=== PATIENT | male | born 1985 | race Caucasian/White ===

== ENCOUNTER 2022-08-03 08:45 | Emergency (ER) | payer MEDICAID, SELFPAY ==
[2022-08-03 09:04] VITALS: BP 150/82; PULSE 73; RESP 16; TEMP 36.5; O2SAT 99; BMI 23.6
--- NOTE | 2022-08-03 10:00 | ED_ITS ---
HPI - Dental/Oral General: Chief complaint: Dental/Oral Stated complaint: Jaw pain Time Seen by Provider: 08/03/22 08:49 Source: patient Mode of arrival: ambulatory History of Present Illness: 37-year-old male presents emergency room with complaint of right mandibular pain for the last week he has significant dental caries and erosion. He is complaining of pain posterior left mandible with pain radiating up into his ear no fever sweats chills nausea vomiting or diarrhea has not been taking anything for it up to this point. MD Complaint: tooth pain Teeth map: 1. Onset (ago): week(s) (1) Duration: constant Severity: moderate Relieving factors: nothing Exacerbating factors: nothing Context: history of dental caries Associated symptoms: Reports ear or mastoid pain and sore throat; Denies fever(s), gum swelling, odynophagia or tongue swelling Review of Systems Const: Denies: fever(s) ENMT: Reports: ear or mastoid pain; Denies: odynophagia Card: Denies: chest pain, edema, dyspnea on exertion or orthopnea Resp: Denies: dyspnea, productive cough or non-productive cough GI: Denies: abdominal pain, nausea, vomiting, hematemesis, coffee ground emesis, diarrhea, constipation, bloating, hematochezia or melena : Denies: flank pain, dysuria, urinary frequency or urinary urgency Skin/Breast: Denies: rash or pruritus All/Imm: Denies: tongue swelling Physical Exam Const: COMMON NORMALS: no acute distress GENERAL APPEARANCE: cooperative and comfortable ORIENTATION/CONSCIOUSNESS: Yes awake, Yes oriented to person, Yes oriented to place and Yes oriented to time HENMT: COMMON NORMALS: normocephalic, atraumatic, hearing grossly normal bilaterally, external ears normal, EAC's normal, TM's normal bilaterally, Normal nasal mucous membranes and turbinates present, moist oral mucous membranes and oropharynx normal HEAD & SCALP: normocephalic and atraumatic NOSE: Normal nasal mucous membranes and turbinates present EXTERNAL EAR: Yes external ears normal EXTERNAL AUDITORY CANAL: EAC's normal TYMPANIC MEMBRANE: TM's normal bilaterally TEETH & GINGIVA: Yes caries and Yes poor dentition Eye: COMMON NORMALS: Equal, round and reactive pupils present, EOMs intact bilaterally, conjunctivae normal and no scleral icterus CONJUNCTIVA: Yes conjunctivae normal PUPIL: Yes Equal, round and reactive pupils present Neck/C-Spine: COMMON NORMALS: full ROM, no lymphadenopathy, supple and no JVD Lymph: LYMPHATIC: no lymphadenopathy noted and no lymphedema noted Resp: COMMON NORMALS: normal respiratory effort, No retractions, No use of accessory muscles and clear to auscultation bilaterally AUSCULTATION: clear to auscultation bilaterally Cardio: COMMON NORMALS: no JVD, regular rate, regular rhythm and No murmurs present (Cardio) RATE: regular rate RHYTHM: regular rhythm GI: COMMON NORMALS: Soft to palpation and No hepatosplenomegaly present AUSCULTATION: Yes normoactive bowel sounds PALPATION: Yes Soft to palpation, No Tenderness to palpation present (GI), No Guarding due to palpation present (GI) and Yes No hepatosplenomegaly present Extremity: COMMON NORMALS: normal to inspection, capillary refill normal, no clubbing, cyanosis or edema, no calf tenderness and no pedal edema Neuro: SENSORIUM/ORIENTATION: Yes oriented to person, Yes oriented to place and Yes oriented to time Skin: COMMON NORMALS: no rashes or lesions noted GENERAL SKIN EXAM: no rashes or lesions noted Course Vital Signs: Vital signs: Vital Signs Temperature 97.7 F 08/03/22 09:04 Pulse Rate 73 08/03/22 09:04 Respiratory Rate 16 08/03/22 09:04 Blood Pressure 150/82 08/03/22 09:04 Pulse Oximetry 99 08/03/22 09:04 MDM - Dental/Oral Medical Decision Making No lymphadenopathy and no significant gingival swelling or drainage at this time. TM was clear and except ear pain is referred from the tooth pain. We gavi l start him on Augmentin and diclofenac as needed for discomfort and follow-up with dentistry as soon as he is able for definitive care. Discharge Plan Discharge Patient Disposition: Home Clinical Impression: Dental caries Condition: Stable Prescriptions: New amoxicillin-pot clavulanate 875-125 mg tablet 1 tab PO BID Qty: 20 0RF diclofenac sodium 75 mg tablet,delayed release (DR/EC) 75 mg PO Q12H PRN (Reason: pain) Qty: 20 0RF No Action Tylenol 325 mg Capsule 650 mg PO QID PRN (Reason: Pain) Discharge Orders: Discharge ED (Routine); Ordered 08/03/22 Ordered By: Onesimo L Horstman Discharge Diet: Soft Mechanical Discharge Activity: Resume usual activity Patient Instructions: Opioid Safety, Pain Management Activity Restrictions/Additional Instructions: Recommend following up with a dentist as soon as you are able for definitive care of the dental caries. Coding Level of Care Code ED Loading Inspector for Jolene Tony
== END 2022-08-03 09:56 | disposition home or self-care (01) ==
PROVIDERS: Emergency Provider Family Medicine
DX: K02.9 Dental caries, unspecified (principal)
CPT/HCPCS: 99283

== ENCOUNTER 2023-03-25 10:13 | Emergency (ER) | payer MEDICAID, SELFPAY ==
[2023-03-25 10:17] VITALS: BP 133/91; PULSE 78; RESP 14; TEMP 36.7; O2SAT 98; BMI 23.6
--- NOTE | 2023-03-25 10:28 | ECG_ITS ---
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 Measurements Intervals [place] Rate: 71 P: 46 GA: 172 QRS: 50 QRSD: 86 T: 55 QT: 368 QTc: 402 Interpretive Statements SINUS RHYTHM SEPTAL MYOCARDIAL INFARCTION , OF INDETERMINATE AGE [40+ ms Q WAVE IN V1/V2] No previous ECG available for comparison Electronically Signed On 03-25-2023 15:45:23 CDT by Ciro Richter M.D. [email or web address] [email or web address] clinic foundationEnsocare/store/NU/[id number] f
--- NOTE | 2023-03-25 10:34 | XRR_ITS ---
PROCEDURE INFORMATION: Exam: XR Chest Exam date and time: 03/25/2023 11:12 AM Age: 37 years old Clinical indication: Pain; Chest pressure; Additional info: Cp, retrosternal TECHNIQUE: Imaging protocol: Radiologic exam of the chest. Views: 1 view. COMPARISON: No relevant prior studies available. FINDINGS: Lungs: Unremarkable. No consolidation. Pleural spaces: Unremarkable. No pleural effusion. No pneumothorax. Heart/Mediastinum: Unremarkable. No cardiomegaly. Bones/joints: Unremarkable for age. XR/XR chest 1V [id number] IMPRESSION: Negative chest exam.
--- NOTE | 2023-03-25 10:59 | ED_ITS ---
HPI - Chest Pain General: Chief Complaint: Chest Pain Stated Complaint: Chest tightness Time Seen by Provider: 03/25/23 10:59 History of Present Illness: Mr. Martel is a 37-year-old gentleman with history of tobaccoism presenting the emergency department for chest discomfort that has largely resolved. He notes onset of symptoms this morning during rest without known specific provoking event. Severe substernal squeezing associated with mild shortness of breath. Currently pain has become mild. Has had 2 episodes similar in the past though denies specific similar events and this has been more severe than previous episodes. No other specific changes in health, exacerbating, or alleviating factors identified. Onset (ago): hour(s) Prior episodes: Yes (2 other times) Onset: during rest Pain location: substernal Severity: severe Quality: tightness Relieving factors: nothing Exacerbating factors: nothing Associated symptoms: Reports dyspnea Review of Systems General: Reports: 10 or more systems reviewed and unremarkable except in HPI and below Resp: Reports: dyspnea [facility] ED PFSH: Medical History (Updated 04/02/23 @ 00:01 by DAPHNE Vaughan) No significant past medical history Surgical History (Updated 03/25/23 @ 11:05 by Piyush Burgos MD) No significant past surgical history Social History (Updated 03/25/23 @ 11:06 by Piyush Burgos MD) Smoking and tobacco status: current every day smoker Physical Exam Const: COMMON NORMALS: alert GENERAL APPEARANCE: cooperative and well developed HENMT: COMMON NORMALS: normocephalic and atraumatic HEAD & SCALP: normocephalic and atraumatic Eye: COMMON NORMALS: conjunctivae normal CONJUNCTIVA: Yes conjunctivae normal SCLERA: sclerae normal Neck/C-Spine: COMMON NORMALS: supple GENERAL: Yes trachea midline Resp: COMMON NORMALS: normal respiratory effort EFFORT & INSPECTION: Yes able to speak in complete sentences Cardio: COMMON NORMALS: regular rate and regular rhythm RATE: regular rate RHYTHM: regular rhythm GI: COMMON NORMALS: Soft to palpation PALPATION: Yes Soft to palpation and No Tenderness to palpation present (GI) Extremity: GENERAL: Yes normal exam except as noted and No edema Neuro: COMMON NORMALS: moves all extremities SENSORIUM/ORIENTATION: Yes alert and No Orientation impaired Psych: COMMON NORMALS: mental status grossly normal and Normal thought process present THOUGHT PROCESS: Normal thought process present Course Vital Signs: Vital signs: Vital Signs Temperature 98.1 F 03/25/23 10:17 Pulse Rate 62 03/25/23 14:05 Respiratory Rate 22 H 03/25/23 14:05 Blood Pressure 130/81 03/25/23 14:05 Pulse Oximetry 94 03/25/23 14:05 Oxygen Delivery Me thod Room Air 03/25/23 11:01 MDM - Chest Pain Medical Decision Making 37-year-old presenting with chest pain. Nontoxic. EKG with sinus rhythm, normal axis and intervals, no STEMI. Unremarkable hematologic panel. Metabolic panel with mildly elevated bilirubin and minimal transaminitis. D-dimer negative. Troponin negative. No UTI. Chest x-ray with no lobar consolidations or pneumothorax. Given abnormal biliary testing and possibility of referred pain ultrasound was obtained and notes cholelithiasis. Patient does not have right upper quadrant reproducible tenderness palpation and denies typical biliary colic and history. I do not believe that he requires inpatient management for further evaluation. Bile ducts are normal. Patient is low risk by heart score. The results of ED evaluation were discussed with the patient including prescriptions and/or symptomatic cares (if applicable) including appropriate and responsible use, followup plan, and return precautions. The patient verbalized understanding and felt safe for discharge. Medical Records I reviewed the patient's medical records. Lab Data I reviewed the patient's lab results. 03/25/23 10:50 03/25/23 10:50 Radiology Impressions Chest X-Ray 03/25/23 10:34 IMPRESSION: Negative chest exam. Gallbladder Ultrasound 03/25/23 12:08 IMPRESSION: Contracted gallbladder with stones. Suboptimal evaluation for gallbladder wall thickening. If clinically indicated, HIDA scan would provide a more sensitive evaluation for acute gallbladder pathology. Laboratory Results WBC 7.1 10^3/uL (4.0-10.0) 03/25/23 10:50 RBC 5.33 10^6/uL (4.1-5.3) H 03/25/23 10:50 Hgb 16.4 g/dL (11.7-16.6) 03/25/23 10:50 Hct 46.9 % (42.0-52.0) 03/25/23 10:50 MCV 88.0 fl (80-94) 03/25/23 10:50 MCH 30.8 pg (28.0-34.0) 03/25/23 10:50 MCHC 35.0 g/dL (30.0-36.0) 03/25/23 10:50 RDW 12.8 % (12.1-15.1) 03/25/23 10:50 Plt Count 222 10^3/cmm (130-400) 03/25/23 10:50 MPV 8.9 fL (7.4-10.4) 03/25/23 10:50 Neut % (Auto) 50.4 % 03/25/23 10:50 Lymph % (Auto) 36.4 % 03/25/23 10:50 [place] % (Auto) 7.7 % 03/25/23 10:50 Eos % (Auto) 4.6 % 03/25/23 10:50 Baso % (Auto) 0.8 % 03/25/23 10:50 Neut # (Auto) 3.58 10^3/uL (1.8-7.7) 03/25/23 10:50 Lymph # (Auto) 2.6 10^3/uL (0.8-4.8) 03/25/23 10:50 [place] # (Auto) 0.6 10^3/uL (0.2-0.9) 03/25/23 10:50 Eos # (Auto) 0.3 10^3/uL (0.0-0.8) 03/25/23 10:50 Baso # (Auto) 0.1 10^3/uL (0.0-0.1) 03/25/23 10:50 Nucleated RBC % (auto) 0 % 03/25/23 10:50 Nucleated RBCs # 0.0 /100WBC 03/25/23 10:50 D-Dimer 0.38 ug/mIFEU (0-0.59) 03/25/23 10:50 Sodium 138 mmol/L (136-145) 03/25/23 10:50 Potassium 4.4 mmol/L (3.5-5.1) 03/25/23 10:50 Chloride 99 mmol/L (98-107) 03/25/23 10:50 Carbon Dioxide 28 mmol/L (22-29) 03/25/23 10:50 Anion Gap 15.4 (5-19) 03/25/23 10:50 BUN 14 mg/dL (6-20) 03/25/23 10:50 Creatinine 0.8 mg/dL (0.7-1.2) 03/25/23 10:50 GFR Calculation 110.0 mL/min (90-130) 03/25/23 10:50 Glucose 78 mg/dL (65-115) 03/25/23 10:50 Calculated Osmolality 285 mOsm/kg (285-295) 03/25/23 10:50 Calcium 10.1 mg/dL (8.5-10.5) 03/25/23 10:50 Total Bilirubin 1.6 mg/dL (0.15-1.2) H 03/25/23 10:50 AST 86 U/L (0-40) H 03/25/23 10:50 ALT 96 U/L (0-41) H 03/25/23 10:50 Alkaline Phosphatase 75 U/L (40-130) 03/25/23 10:50 Troponin T Baseline 6 ng/L (0-15) 03/25/23 10:50 Troponin T 120 Minute 6.28 ng/L (0-15) 03/25/23 12:47 Delta Troponin T 0.22 ABS# (0-10) 03/25/23 12:47 Total Protein 7.7 g/dL (6.6-8.7) 03/25/23 10:50 Albumin 5.1 g/dL (3.5-5.2) 03/25/23 10:50 Globulin 2.6 g/dL (1.3-4.6) 03/25/23 10:50 Lipase 13 U/L (13-60) 03/25/23 12:47 TSH 2.67 uIU/mL (0.27-4.20) 03/25/23 10:50 Urine Color Dark yellow (Yellow) 03/25/23 13:23 Urine Appearance Clear (CLEAR) 03/25/23 13:23 Urine pH 7 (5-7) 03/25/23 13:23 Ur Specific [place] 1.015 (1.005-1.030) 03/25/23 13:23 Urine Protein Neg (Negative) 03/25/23 13:23 Urine Glucose (UA) Norm (Normal) 03/25/23 13:23 Urine Ketones 1+ (Negative) H 03/25/23 13:23 Urine Blood Neg (Negative) 03/25/23 13:23 Urine Nitrate Negative (Negative) 03/25/23 13:23 Urine Bilirubin 1+ (Negative) H 03/25/23 13:23 Urine Urobilinogen 4 mg/dL (Negative) H 03/25/23 13:23 Ur Leukocyte Esterase Negative (Negative) 03/25/23 13:23 Urine Opiates Screen Negative ng/mL (Negative) 03/25/23 13:23 Ur Barbiturates Screen Negative ng/mL (Negative) 03/25/23 13:23 Ur Phencyclidine Scrn Negative ng/mL (Negative) 03/25/23 13:23 Ur Amphetamines Screen Positive ng/mL (Negative) H 03/25/23 13:23 U Benzodiazepines Scrn Negative ng/mL (Negative) 03/25/23 13:23 Urine Cocaine Screen Negative ng/mL (Negative) 03/25/23 13:23 U Marijuana (THC) Screen Positive ng/mL (Negative) H 03/25/23 13:23 Discharge Plan Discharge Patient Disposition: Home Clinical Impression: Chest pain, Abnormal transaminases, Abnormal bilirubin test Condition: Stable Prescriptions: No Action No Known Home Medications Discharge Orders: Discharge ED (Routine); Ordered 03/25/23 Ordered By: Piyush Burgos Discharge Diet: Usual diet Discharge Activity: Resume usual activity Patient Instructions: Chest Pain (ED), Gallstones (ED) Activity Restrictions/Additional Instructions: Thank you for visiting the emergency department. You were seen and evaluated for chest pain. The exact cause of your symptoms is unclear however does not appear to need hospitalization at this time as you are low risk for adverse cardiac events. You were noted to have abnormal liver enzymes and total bilirubin. The exact cause of this is unclear and requires further outpatient management. I will message case management for outpatient testing and follow-up with a primary care provider. Return to the emergency department for uncontrolled symptoms, yellowing of the eyes or skin, right upper quadrant abdominal pain, fevers, or anything else that you are concerned about and feel needs emergency department evaluation. Coding Level of Care Code ED Mechanical Oxidizer for Jolene Tony
[2023-03-25 11:01] VITALS: BP 135/89; PULSE 75; RESP 20; O2SAT 100
[2023-03-25 11:06] LABS: Basophils # 0.1 10^3/uL (0.0-0.1); Basophils % 0.8 %; Eosinophils # 0.3 10^3/uL (0.0-0.8); Eosinophils % 4.6 %; Hematocrit 46.9 % (42.0-52.0); Hemoglobin 16.4 g/dL (11.7-16.6); Lymphocytes # 2.6 10^3/uL (0.8-4.8); Lymphocytes % 36.4 %; Mean Corpuscular Hemoglobin 30.8 pg (28.0-34.0); Mean Platelet Volume 8.9 fL (7.4-10.4); Monocytes # 0.6 10^3/uL (0.2-0.9); Monocytes % 7.7 %; Neutrophils # 3.58 10^3/uL (1.8-7.7); Neutrophils % 50.4 %; Nucleated Red Blood Cells % 0 %; Platelet Count 222 10^3/cmm (130-400); Red Blood Count 5.33 10^6/uL (4.1-5.3); Red Cell Distribution Width 12.8 % (12.1-15.1); White Blood Count 7.1 10^3/uL (4.0-10.0)
[2023-03-25 11:27] LABS: Troponin(5th) Baseline 6 ng/L (0-15)
[2023-03-25 11:35] LABS: D Dimer 0.38 ug/mIFEU (0-0.59)
[2023-03-25 11:36] LABS: Alanine Aminotransferase 96 U/L (0-41); Albumin Level 5.1 g/dL (3.5-5.2); Alkaline Phosphatase 75 U/L (40-130); Anion Gap 15.4 (5-19); Aspartate Amino Transferase 86 U/L (0-40); Blood Urea Nitrogen 14 mg/dL (6-20); Calcium 10.1 mg/dL (8.5-10.5); Carbon Dioxide 28 mmol/L (22-29); Chloride 99 mmol/L (98-107); Globulin 2.6 g/dL (1.3-4.6); Glucose 78 mg/dL (65-115); Osmolality Calculated 285 mOsm/kg (285-295); Potassium 4.4 mmol/L (3.5-5.1); Sodium 138 mmol/L (136-145); Thyroid Stimulating Hormone 2.67 uIU/mL (0.27-4.20); Total Bilirubin 1.6 mg/dL (0.15-1.2); Total Protein 7.7 g/dL (6.6-8.7)
[2023-03-25 11:37] VITALS: BP 125/92; PULSE 75; RESP 17; O2SAT 98
--- NOTE | 2023-03-25 12:08 | USR_ITS ---
PROCEDURE INFORMATION: Exam: US Abdomen, Limited; Right Upper Quadrant Exam date and time: 03/25/2023 12:59 PM Age: 37 years old Clinical indication: Abdominal pain; Epigastric; Additional info: Epigastric/chest pain, abnormal liver functions TECHNIQUE: Imaging protocol: Real time ultrasound of the abdomen with image documentation. Limited exam focused on the right upper quadrant. COMPARISON: No relevant prior studies available. FINDINGS: Liver: Unremarkable. Gallbladder: Contracted gallbladder with stones. Suboptimal evaluation for gallbladder wall thickening. No definite pericholecystic fluid. Negative sonographic Ferguson's sign, as per the stable helper. Biliary ducts: Normal. No stones. No dilation. Pancreas: Unremarkable as visualized. Right kidney: No mass. No definite stones. No hydronephrosis. US/US gall bladder [id number] IMPRESSION: Contracted gallbladder with stones. Suboptimal evaluation for gallbladder wall thickening. If clinically indicated, HIDA scan would provide a more sensitive evaluation for acute gallbladder pathology.
[2023-03-25 12:34] VITALS: BP 126/83; PULSE 54; RESP 19; O2SAT 100
[2023-03-25 13:02] VITALS: BP 117/81; PULSE 58; RESP 26; O2SAT 100
[2023-03-25 13:21] LABS: Lipase 13 U/L (13-60)
[2023-03-25 13:22] LABS: Troponin 5 2HR 6.28 ng/L (0-15)
[2023-03-25 13:41] LABS: Add Urine Microscopic? NO; Charge for UA Resulting for Rev
[2023-03-25 13:44] LABS: Bilirubin Urine 1+ (Negative); Blood Urine Neg (Negative); Glucose Urine UA Norm (Normal); Ketones Urine 1+ (Negative); Leukocyte Esterase Urine Negative (Negative); Nitrate Urine Negative (Negative); Protein Urine Neg (Negative); Specific Gravity, Urine 1.015 (1.005-1.030); Urine Appearance Clear (CLEAR); Urine Color Dark Yellow (Yellow); Urobilinogen Urine 4 mg/dL (Negative); pH Urine 7 (5-7)
[2023-03-25 13:52] LABS: Troponin 5 2HR Delta 0.22 ABS# (0-10)
[2023-03-25 13:53] LABS: Amphetamines Screen Urine Positive (Negative); Barbiturates Screen Urine Negative (Negative); Benzodiazepines Screen Urine Negative (Negative); Cocaine Screen Urine Negative (Negative); Opiate Screen Urine Negative (Negative); PCP Screen Urine Negative (Negative); THC Screen Urine Positive (Negative)
[2023-03-25 14:05] VITALS: BP 130/81; PULSE 62; RESP 22; O2SAT 94
== END 2023-03-25 14:06 | disposition home or self-care (01) ==
PROVIDERS: Physician Assistant; Emergency Provider Emergency Medicine
DX: R07.9 Chest pain, unspecified (principal); R74.01 Elevation of levels of liver transaminase levels; R79.89 Other specified abnormal findings of blood chemistry; F17.210 Nicotine dependence, cigarettes, uncomplicated
CPT/HCPCS: 36415; 71045; 76705; 80053; 80306; 81003; 83690; 84443; 84484; 85025; 85378; 93005; 99285

== ENCOUNTER 2023-05-23 16:19 | Emergency (ER) | payer MEDICAID, SELFPAY ==
[2023-05-23 16:34] VITALS: BP 124/77; PULSE 93; RESP 16; O2SAT 98
--- NOTE | 2023-05-23 17:04 | ED_ITS ---
HPI - Headache General: Chief Complaint: Headache Stated Complaint: headache Time Seen by Provider: 05/23/23 17:01 History of Present Illness: 37-year-old male patient comes in today with right upper jaw pain and headache. Patient has a right upper molar that is partially decayed and had a cap that came out exposing the nerve. Patient has various dental caries. Patient attempted to pull the tooth but was unable to move it and caused him more significant pain and discomfort. Patient appears nontoxic. Patient reports no chronic medical problems. Review of Systems General: Reports: 10 or more systems reviewed and unremarkable except in HPI and below ENMT: Reports: dental pain [facility] ED PFSH: Medical History (Updated 05/23/23 @ 17:29 by FREDY Crisostomo) No significant past medical history Surgical History (Updated 03/25/23 @ 11:05 by Piyush Burgos MD) No significant past surgical history Social History (Updated 03/25/23 @ 11:06 by Piyush Burgos MD) Smoking and tobacco status: current every day smoker Physical Exam Const: COMMON NORMALS: alert HENMT: COMMON NORMALS: normocephalic HEAD & SCALP: normocephalic TEETH & GINGIVA: Yes poor dentition TEETH & GINGIVA IMAGES: 1. Carious tooth tender to palpation THROAT: posterior oropharynx normal Resp: COMMON NORMALS: normal respiratory effort and clear to auscultation bilaterally AUSCULTATION: clear to auscultation bilaterally Cardio: COMMON NORMALS: regular rate RATE: regular rate GI: COMMON NORMALS: Normal to inspection, nondistended, normoactive bowel sounds present Extremity: COMMON NORMALS: normal to inspection Neuro: SENSORIUM/ORIENTATION: Yes alert Skin: COMMON NORMALS: no rashes or lesions noted GENERAL SKIN EXAM: no rashes or lesions noted Procedures Nerve Block Nerve Block 1: Local Anesthetic: bupivacaine 0.5% Amount of anesthesia used (mL): 5 Side: right Nerve Blocks: other (Posterior superior alveolar nerve) Procedure Successful: Yes Patient Tolerated Procedure: well Complications: none Course Vital Signs: Vital signs: Vital Signs Pulse Rate 93 05/23/23 16:34 Respiratory Rate 16 05/23/23 16:34 Blood Pressure 124/77 05/23/23 16:34 Pulse Oximetry 98 05/23/23 16:34 Oxygen Delivery Me thod Room Air 05/23/23 16:34 MDM - Headache Medical Decision Making 37-year-old male patient comes in today with complaints of right upper jaw pain along a carious tooth. On exam the first molar has a large query with open center. The tooth appeared to have been filled at 1 time and the feeling has been lost. No significant sign of abscess is noted. Posterior pharynx is normal. Differential diagnosis includes dental abscess, dental pain, dental caries, malingering. Bupivacaine was used in a superior posterior alveolar nerve block with good results. Patient was also given a dose of Toradol IM and started on some amoxicillin to cover for secondary infection. Patient was strongly recommended to follow-up with dentist for further evaluation and treatment. Discharge Plan Discharge Patient Disposition: Home Clinical Impression: Pain due to dental caries Condition: Stable Prescriptions: New amoxicillin 500 mg capsule 500 mg PO TID Qty: 21 0RF ketorolac 10 mg tablet 10 mg PO Q6H PRN (Reason: pain (scale score 7-10)) 3 Days Qty: 12 0RF Lidocaine Viscous 2 % solution 10 ml mucous membrane Q4H PRN (Reason: pain) Qty: 100 0RF Discharge Orders: Discharge ED (Routine); Ordered 05/23/23 Ordered By: Federico Robertson Discharge Diet: Usual diet Discharge Activity: Increase activity as tolerated Patient Instructions: Toothache (ED) Activity Restrictions/Additional Instructions: Take antibiotic as directed. Use ice or heat for further pain relief. Use acetaminophen to help with pain. Take ketorolac as needed for severe pain every 6 hours. Use viscous lidocaine applied to gauze and hold in place next to the dental cavity to help numb and improve pain. Follow-up with dentist for definitive care. Coding Level of Care Code ED Merchandise Associate for Jolene Tony
[2023-05-23] MEDS: BUPivacaine 0.5% INJ 10 mL INJECTION (17:21)
== END 2023-05-23 17:44 | disposition home or self-care (01) ==
PROVIDERS: Emergency Provider Nurse Practitioner Family
DX: K02.9 Dental caries, unspecified (principal); F17.210 Nicotine dependence, cigarettes, uncomplicated
CPT/HCPCS: 64400; 99283; J3490

== ENCOUNTER 2023-06-10 11:47 | Emergency (ER) | payer MEDICAID, SELFPAY ==
[2023-06-10 11:49] VITALS: BP 106/82; PULSE 84; RESP 15; TEMP 36.7; O2SAT 99
--- NOTE | 2023-06-10 12:17 | W.ED.CHESTPA ---
HPI - Chest Pain General: Chief Complaint: Chest Pain Stated Complaint: CHEST PAIN Time Seen by Provider: 06/10/23 11:49 History of Present Illness: 37-year-old male reports last night he ate an authentic Scottish burrito with hot and narrow peppers. This morning he woke up with pain just below his xiphoid in the epigastric region along with some diarrhea. Patient was under the impression that his heart was in the subxiphoid region. Therefore he got concerned because he knows that he has a family history of heart disease. However, during transport, his pain seemed to improve down to a 3 out of 10. He denies any shortness of breath, diaphoresis, presyncopal symptoms, palpitations, hemoptysis, cough, fever, chills, swelling, orthopnea, wheezing. No known aggravating or alleviating factors. Associated symptoms: Deny dyspnea, fever(s), nausea, syncope or vomiting Review of Systems General: Reports: 10 or more systems reviewed and unremarkable except in HPI and below Const: Denies: fever(s), chills or body aches Eyes: Denies: change in vision ENMT: Denies: throat pain Card: Denies: edema or syncope Resp: Denies: dyspnea or productive cough GI: Denies: nausea or vomiting : Denies: flank pain, dysuria or urinary frequency Musc: Denies: neck pain, back pain, extremity pain or extremity swelling Skin/Breast: Denies: rash or erythema Neuro: Denies: headache(s), numbness in extremities, weakness in extremities, lack of coordination or difficulty walking [facility] ED PFSH: Medical History (Updated 06/10/23 @ 12:48 by Vish Burns MD) No significant past medical history Surgical History (Updated 03/25/23 @ 11:05 by Piyush Burgos MD) No significant past surgical history Social History (Updated 03/25/23 @ 11:06 by Piyush Burgos MD) Smoking and tobacco status: current every day smoker Physical Exam Narrative: EXAM NARRATIVE: Smell of body odor when he entered the room. Patient has multiple backpacks with him. He is slightly disheveled. ? Homelessness Const: COMMON NORMALS: no limitations, alert and well nourished EXAM LIMITATIONS: no altered mental status HENMT: COMMON NORMALS: normocephalic, atraumatic and external ears normal HEAD & SCALP: normocephalic and atraumatic EXTERNAL EAR: Yes external ears normal MOUTH: no muffled voice Eye: COMMON NORMALS: EOMs intact bilaterally, conjunctivae normal and no scleral icterus CONJUNCTIVA: Yes conjunctivae normal Neck/C-Spine: COMMON NORMALS: no JVD GENERAL: Yes normal visual inspection and Yes trachea midline Resp: COMMON NORMALS: normal respiratory effort, No use of accessory muscles and clear to auscultation bilaterally AUSCULTATION: clear to auscultation bilaterally Cardio: COMMON NORMALS: no JVD, regular rate and regular rhythm RATE: regular rate RHYTHM: regular rhythm GI: COMMON NORMALS: Soft to palpation and non-tender PALPATION: Yes Soft to palpation and No Guarding due to palpation present (GI) Extremity: COMMON NORMALS: normal to inspection Neuro: COMMON NORMALS: moves all extremities, no focal motor deficits and no sensory deficits noted SENSORIUM/ORIENTATION: Yes alert SPEECH: speech normal Psych: COMMON NORMALS: mental status grossly normal, Normal thought process present, cooperative, normal affect and speech normal SPEECH: Yes normal speech THOUGHT PROCESS: Normal thought process present Skin: COMMON NORMALS: no rashes or lesions noted, turgor normal and no jaundice GENERAL SKIN EXAM: no rashes or lesions noted and turgor normal Course Vital Signs: Vital signs: Vital Signs Temperature 98.0 F 06/10/23 11:49 Pulse Rate 84 06/10/23 11:49 Respiratory Rate 15 06/10/23 11:49 Blood Pressure 106/82 06/10/23 11:49 Pulse Oximetry 99 06/10/23 11:49 Oxygen Delivery Me thod Room Air 06/10/23 11:49 MDM - Chest Pain Medical Decision Making Patient presents with discomfort in the epigastric region and a few episodes of diarrhea. Abdomen is soft and nontender. Auscultation of the heart and lungs is normal. EKG is nonischemic. Vitals are reassuring. Pain is reported as minimal, he gives it a 3 out of 10. Differential diagnosis would include dyspepsia, gastritis, atypical chest pain, GERD, others. Low suspicion for ACS, pneumothorax, pleural effusion, dissection, AAA, acute abdomen, PE. EKG obtained at 11:48 AM. My interpretation shows a sinus rhythm, rate 83, normal axis, normal intervals, no concerning ST segment elevations or depressions, no hyperacute T waves, no ectopy. Normal EKG Update 1245 CBC, CMP, troponin all normal. SPO2 100% on room air. Respiratory rate normal. Lungs clear. EKG normal. D/c with return precautions and outpatient f/u. Lab Data 06/10/23 11:57 06/10/23 11:57 Laboratory Results WBC 4.74 10^3/uL (3.29-11.43) 06/10/23 11:57 RBC 5.07 10^6/uL (3.85-5.65) 06/10/23 11:57 Hgb 15.80 g/dL (11.27-16.99) 06/10/23 11:57 Hct 43.6 % (37-53) 06/10/23 11:57 MCV 86.0 fl (82-101) 06/10/23 11:57 MCH 31.2 pg (27-33) 06/10/23 11:57 MCHC 36.2 g/dL (30-55) 06/10/23 11:57 RDW 12.3 % (12.1-15.1) 06/10/23 11:57 Plt Count 192 10^3/cmm (157-399) 06/10/23 11:57 MPV 10.1 fL (7.4-10.4) 06/10/23 11:57 Neut % (Auto) 50.8 % 06/10/23 11:57 Lymph % (Auto) 32.9 % 06/10/23 11:57 [place] % (Auto) 9.1 % 06/10/23 11:57 Eos % (Auto) 5.9 % 06/10/23 11:57 Baso % (Auto) 1.1 % 06/10/23 11:57 Neut # (Auto) 2.41 10^3/uL (1.8-7.7) 06/10/23 11:57 Lymph # (Auto) 1.6 10^3/uL (0.8-4.8) 06/10/23 11:57 [place] # (Auto) 0.4 10^3/uL (0.2-0.9) 06/10/23 11:57 Eos # (Auto) 0.3 10^3/uL (0.0-0.8) 06/10/23 11:57 Baso # (Auto) 0.1 10^3/uL (0.0-0.1) 06/10/23 11:57 Nucleated RBC % (auto) 0 % 06/10/23 11:57 Nucleated RBCs # 0.0 /100WBC 06/10/23 11:57 Sodium 137 mmol/L (136-145) 06/10/23 11:57 Potassium 3.6 mmol/L (3.5-5.1) 06/10/23 11:57 Chloride 98 mmol/L (98-107) 06/10/23 11:57 Carbon Dioxide 25 mmol/L (22-29) 06/10/23 11:57 Anion Gap 17.6 (5-19) 06/10/23 11:57 BUN 12 mg/dL (6-20) 06/10/23 11:57 Creatinine 0.7 mg/dL (0.7-1.2) 06/10/23 11:57 GFR Calculation 128.3 mL/min (90-130) 06/10/23 11:57 Calculated Osmolality 286 mOsm/kg (285-295) 06/10/23 11:57 Calcium 9.3 mg/dL (8.5-10.5) 06/10/23 11:57 Total Bilirubin 1.1 mg/dL (0.15-1.2) 06/10/23 11:57 Alkaline Phosphatase 69 U/L (40-130) 06/10/23 11:57 Troponin T Baseline 6 ng/L (0-15) 06/10/23 11:57 Total Protein 7.1 g/dL (6.6-8.7) 06/10/23 11:57 Albumin 4.5 g/dL (3.5-5.2) 06/10/23 11:57 Globulin 2.6 g/dL (1.3-4.6) 06/10/23 11:57 Discharge Plan Discharge Patient Disposition: Home Clinical Impression: Epigastric discomfort Condition: Stable Prescriptions: No Action No Known Home Medications Discharge Orders: Discharge ED (Routine); Ordered 06/10/23 Ordered By: Vish Burns Referrals: [facility], [Staff Physician] - 2 weeks ([address] ? ) Discharge Diet: Advance as tolerated Discharge Activity: Resume usual activity Patient Instructions: Chest Pain (ED), Epigastric Pain (ED) Activity Restrictions/Additional Instructions: Please read handouts and abide by return precautions. Follow-up with primary care in 1 to 2 weeks Coding Level of Care Code ED Senior Java Software Developer for Jolene Tony
[2023-06-10 12:41] LABS: Basophils # 0.1 10^3/uL (0.0-0.1); Basophils % 1.1 %; Eosinophils # 0.3 10^3/uL (0.0-0.8); Eosinophils % 5.9 %; Hematocrit 43.6 % (37-53); Lymphocytes # 1.6 10^3/uL (0.8-4.8); Lymphocytes % 32.9 %; Mean Corpuscular HGB Conc 36.2 g/dL (30-55); Mean Corpuscular Hemoglobin 31.2 pg (27-33); Mean Platelet Volume 10.1 fL (7.4-10.4); Monocytes # 0.4 10^3/uL (0.2-0.9); Monocytes % 9.1 %; Neutrophils # 2.41 10^3/uL (1.8-7.7); Neutrophils % 50.8 %; Nucleated Red Blood Cells % 0 %; Platelet Count 192 10^3/cmm (157-399); Red Blood Count 5.07 10^6/uL (3.85-5.65); Red Cell Distribution Width 12.3 % (12.1-15.1); White Blood Count 4.74 10^3/uL (3.29-11.43)
[2023-06-10 12:43] LABS: Alanine Aminotransferase 57 U/L (0-41); Albumin Level 4.5 g/dL (3.5-5.2); Alkaline Phosphatase 69 U/L (40-130); Anion Gap 17.6 (5-19); Aspartate Amino Transferase 44 U/L (0-40); Blood Urea Nitrogen 12 mg/dL (6-20); Calcium 9.3 mg/dL (8.5-10.5); Carbon Dioxide 25 mmol/L (22-29); Chloride 98 mmol/L (98-107); Creatinine Clr Calc Pharmacy 156.4142; Globulin 2.6 g/dL (1.3-4.6); Glomerular Filtration Rate 128.3 mL/min (90-130); Glucose 133 mg/dL (65-115); Osmolality Calculated 286 mOsm/kg (285-295); Potassium 3.6 mmol/L (3.5-5.1); Sodium 137 mmol/L (136-145); Total Bilirubin 1.1 mg/dL (0.15-1.2); Total Protein 7.1 g/dL (6.6-8.7)
[2023-06-10 12:44] LABS: Troponin(5th) Baseline 6 ng/L (0-15)
[2023-06-10] MEDS: lidocaine 2% viscous 15 ML, aluminum-mag hydrox-simethicon 30 ML, sucralfate oral liq 1 GM PO (12:46)
[2023-06-10 13:00] VITALS: BP 129/84; PULSE 85; RESP 16; O2SAT 100
== END 2023-06-10 13:01 | disposition home or self-care (01) ==
PROVIDERS: Emergency Provider Emergency Medicine
DX: R10.13 Epigastric pain (principal); R19.7 Diarrhea, unspecified
CPT/HCPCS: 80053; 84484; 85025; 99284

== ENCOUNTER 2023-09-09 12:36 | Emergency (ER) | payer MEDICAID, SELFPAY ==
[2023-09-09 12:45] VITALS: BP 150/97; PULSE 91; RESP 16; TEMP 36.6; O2SAT 99; BMI 23.3
--- NOTE | 2023-09-09 13:21 | W.ED.NAVMDI ---
HPI - Nausea/Vomiting/Diarrhea General: Chief complaint: Nausea/Vomiting/Diarrhea Stated complaint: bowel problems Time Seen by Provider: 09/09/23 13:20 History of Present Illness: 38-year-old male patient comes in today with watery stools for the last 2 days. Patient appears nontoxic. Patient appears in no pain. Patient does report some irritation to his anus due to the diarrhea stools. Patient reports his mother was also ill for couple days with similar symptoms. Patient started some [id number] bowel supplement today to see if that would help. Patient has a history of renal calculi. Patient expressed concerns of possible bowel cancer. Patient uses marijuana for chronic pain. Associated nausea: No Associated symtoms: Denies chest pain, headache(s) or nausea Review of Systems General: Reports: 10 or more systems reviewed and unremarkable except in HPI and below Const: Denies: fever(s) Card: Denies: chest pain Resp: Denies: dyspnea GI: Reports: diarrhea; Denies: nausea or vomiting : Denies: difficulty urinating Skin/Breast: Denies: rash Neuro: Denies: headache(s) PFSH ED PFSH: Medical History (Updated 09/09/23 @ 14:35 by FREDY Crisostomo) No significant past medical history Surgical History (Updated 03/25/23 @ 11:05 by Piyush Burgos MD) No significant past surgical history Social History (Updated 03/25/23 @ 11:06 by Piyush Burgos MD) Smoking and tobacco/nicotine status: current every day tobacco/nicotine user Physical Exam Const: COMMON NORMALS: alert HENMT: COMMON NORMALS: normocephalic HEAD & SCALP: normocephalic Neck/C-Spine: COMMON NORMALS: full ROM Resp: COMMON NORMALS: normal respiratory effort and clear to auscultation bilaterally AUSCULTATION: clear to auscultation bilaterally Cardio: COMMON NORMALS: regular rate and regular rhythm RATE: regular rate RHYTHM: regular rhythm GI: COMMON NORMALS: Soft to palpation and non-tender PALPATION: Yes Soft to palpation : COMMON NORMALS: Yes no CVA tenderness BLADDER/KIDNEY EXAM: Yes no CVA tenderness Back/Pelvis: COMMON NORMALS: no CVA tenderness Extremity: COMMON NORMALS: normal to inspection and no pedal edema Neuro: SENSORIUM/ORIENTATION: Yes alert Skin: COMMON NORMALS: turgor normal GENERAL SKIN EXAM: turgor normal Course Vital Signs: Vital signs: Vital Signs Temperature 97.9 F 09/09/23 12:45 Pulse Rate 91 09/09/23 12:45 Respiratory Rate 16 09/09/23 12:45 Blood Pressure 150/97 09/09/23 12:45 Pulse Oximetry 99 09/09/23 12:45 Oxygen Delivery Me thod Room Air 09/09/23 12:45 MDM - Nausea/Vomiting/Diarrhea Medical Decision Making 38-year-old male patient comes in today for diarrhea stools for the last 2 days. Patient appears nontoxic. Abdomen soft nontender. Skin is warm and dry. Patient reports blood in the stool. Vital signs are normal. Differential diagnosis includes but not limited to colitis, gastroenteritis, diverticulitis, food poisoning. CBC and CMP were unremarkable. CT of the abdomen pelvis showed no signs of significant abnormality except some mild constipation. Reassured patient there is no sign of cancer. Recommend follow-up with primary care for further instructions. Believe patient probably has just to mild gastroenteritis with no outward signs of dehydration. Patient was discharged to home in stable condition. Lab Data 09/09/23 13:49 09/09/23 13:49 Radiology Impressions Abdomen/Pelvis CT 09/09/23 13:37 IMPRESSION: 1. Mild abdominal colonic constipation. 2. Prior cholecystectomy. 3. Mild splenomegaly. 4. Right renal calyceal lithiasis. 5. Prior cholecystectomy. 6. Nonspecific abnormality left scrotum. Nonemergent scrotal sonography recommended for further evaluation. Laboratory Results WBC 8.16 10^3/uL (3.29-11.43) 09/09/23 13:49 RBC 4.47 10^6/uL (3.85-5.65) 09/09/23 13:49 Hgb 14.00 g/dL (11.27-16.99) 09/09/23 13:49 Hct 38.9 % (37-53) 09/09/23 13:49 MCV 87.0 fl (82-101) 09/09/23 13:49 MCH 31.3 pg (27-33) 09/09/23 13:49 MCHC 36.0 g/dL (30-55) 09/09/23 13:49 RDW 12.9 % (12.1-15.1) 09/09/23 13:49 Plt Count 191 10^3/cmm (157-399) 09/09/23 13:49 MPV 8.9 fL (7.4-10.4) 09/09/23 13:49 Neut % (Auto) 59.4 % 09/09/23 13:49 Lymph % (Auto) 28.8 % 09/09/23 13:49 [place] % (Auto) 7.7 % 09/09/23 13:49 Eos % (Auto) 3.4 % 09/09/23 13:49 Baso % (Auto) 0.6 % 09/09/23 13:49 Neut # (Auto) 4.84 10^3/uL (1.8-7.7) 09/09/23 13:49 Lymph # (Auto) 2.4 10^3/uL (0.8-4.8) 09/09/23 13:49 [place] # (Auto) 0.6 10^3/uL (0.2-0.9) 09/09/23 13:49 Eos # (Auto) 0.3 10^3/uL (0.0-0.8) 09/09/23 13:49 Baso # (Auto) 0.1 10^3/uL (0.0-0.1) 09/09/23 13:49 Nucleated RBC % (auto) 0 % 09/09/23 13:49 Nucleated RBCs # 0.0 /100WBC 09/09/23 13:49 Sodium 138 mmol/L (136-145) 09/09/23 13:49 Potassium 3.6 mmol/L (3.5-5.1) 09/09/23 13:49 Chloride 100 mmol/L (98-107) 09/09/23 13:49 Carbon Dioxide 28 mmol/L (22-29) 09/09/23 13:49 Anion Gap 13.6 (5-19) 09/09/23 13:49 BUN 13 mg/dL (6-20) 09/09/23 13:49 Creatinine 0.9 mg/dL (0.7-1.2) 09/09/23 13:49 GFR Calculation 95.5 mL/min (90-130) 09/09/23 13:49 Glucose 86 mg/dL (65-115) 09/09/23 13:49 Calculated Osmolality 285 mOsm/kg (285-295) 09/09/23 13:49 Calcium 10.1 mg/dL (8.5-10.5) 09/09/23 13:49 Total Bilirubin 1.0 mg/dL (0.15-1.2) 09/09/23 13:49 AST 68 U/L (0-40) H 09/09/23 13:49 ALT 54 U/L (0-41) H 09/09/23 13:49 Alkaline Phosphatase 91 U/L (40-130) 09/09/23 13:49 Total Protein 7.8 g/dL (6.6-8.7) 09/09/23 13:49 Albumin 5.1 g/dL (3.5-5.2) 09/09/23 13:49 Globulin 2.7 g/dL (1.3-4.6) 09/09/23 13:49 Lipase 20 U/L (13-60) 09/09/23 13:49 All radiology interpretation(s) finalized by discharge Discharge Plan Discharge Patient Disposition: Home Clinical Impression: Diarrhea Qualifiers: Diarrhea type: presumed infectious Qualified Code(s): R19.7 - Diarrhea, unspecified Condition: Stable Prescriptions: No Action No Known Home Medications Discharge Orders: Discharge ED (Routine); Ordered 09/09/23 Ordered By: Federico Robertson Discharge Diet: Usual diet Discharge Activity: Increase activity as tolerated Patient Instructions: Diarrhea - Adult Activity Restrictions/Additional Instructions: Home and rest. Drink plenty of water and fluids. Eat a healthy diet with plenty of fiber through fresh fruits and vegetables, and lean meat and whole grains. Follow-up with primary care in 2 to 3 days for recheck. Talk with primary care about further evaluation with colonoscopy through a surgeon. Return to ED for new concerns. Coding Level of Care Code ED Operations Intelligence Superintendent for Jolene Tony
--- NOTE | 2023-09-09 13:37 | CTR_ITS ---
PROCEDURE INFORMATION: Exam: CT Abdomen And Pelvis With Contrast Exam date and time: 09/09/2023 2:11 PM Age: 38 years old Clinical indication: Other: Diarrhea with blood, R/O abscess infection; Prior surgery; Surgery date: 6+ months; Surgery type: Gb TECHNIQUE: Imaging protocol: Computed tomography of the abdomen and pelvis with contrast. Radiation optimization: All CT scans at this facility use at least one of these dose optimization techniques: automated exposure control; mA and/or kV adjustment per patient size (includes targeted exams where dose is matched to clinical indication); or iterative reconstruction. Contrast material: OMNI 350; Contrast volume: 100 ml; Contrast route: INTRAVENOUS (IV); REPORTING DATA: Count of CT and Cardiac NM exams in prior 12 months: This patient has received 0 known CTs and 0 known cardiac nuclear medicine studies in the 12 months prior to the current study. COMPARISON: US gall bladder [id number] 03/25/2023 12:59 PM RADIATION DOSE METRICS: Total DLP (mGy-cm): 373.66 FINDINGS: Liver: Normal. No mass. Gallbladder and bile ducts: The gallbladder is surgically absent, with metallic clips in the gallbladder fossa. No extrahepatic biliary ductal dilatation or calculus. The gallbladder is surgically absent, with metallic clips in the gallbladder fossa. No extrahepatic biliary ductal dilatation or calculus. Pancreas: Normal. No ductal dilation. Spleen: The spleen is mildly enlarged measuring 13.5 cm transversely. Adrenal glands: Normal. No mass. Kidneys and ureters: Right renal calculi (2-3), the largest in the lower pole measuring 6.2 mm. No hydronephrosis/obstructive uropathy. Stomach and bowel: There is mildly increased stool noted in the ascending and proximal transverse colon. No evidence of bowel obstruction. Appendix: No evidence of appendicitis. Intraperitoneal space: No free air. No significant fluid collection. Vasculature: Left pelvic calcified phleboliths. Lymph nodes: No enlarged lymph nodes. Urinary bladder: Unremarkable as visualized. Reproductive: Nonspecific superior left scrotal 1.9 cm hypodensity (series 4, image 88) with crescentic superior hyperenhancement measuring 4.7 mm (series 6, image 17). Bones/joints: Bilateral L5 spondylolysis. Grade 1 L5-S1 anterolisthesis. Soft tissues: Unremarkable. CT/CT abdomen pelvis w con* [id number] IMPRESSION: 1. Mild abdominal colonic constipation. 2. Prior cholecystectomy. 3. Mild splenomegaly. 4. Right renal calyceal lithiasis. 5. Prior cholecystectomy. 6. Nonspecific abnormality left scrotum. Nonemergent scrotal sonography recommended for further evaluation.
[2023-09-09] MEDS: sodium chloride 0.9% 1,000 ML 999 ML IV (13:55)
[2023-09-09 14:03] LABS: Basophils # 0.1 10^3/uL (0.0-0.1); Basophils % 0.6 %; Eosinophils # 0.3 10^3/uL (0.0-0.8); Eosinophils % 3.4 %; Hematocrit 38.9 % (37-53); Lymphocytes # 2.4 10^3/uL (0.8-4.8); Lymphocytes % 28.8 %; Mean Corpuscular Hemoglobin 31.3 pg (27-33); Mean Platelet Volume 8.9 fL (7.4-10.4); Monocytes # 0.6 10^3/uL (0.2-0.9); Monocytes % 7.7 %; Neutrophils # 4.84 10^3/uL (1.8-7.7); Neutrophils % 59.4 %; Nucleated Red Blood Cells % 0 %; Platelet Count 191 10^3/cmm (157-399); Red Blood Count 4.47 10^6/uL (3.85-5.65); Red Cell Distribution Width 12.9 % (12.1-15.1); White Blood Count 8.16 10^3/uL (3.29-11.43)
[2023-09-09] MEDS: iohexol 350 mg/mL 500 mL Btl (per mL) IV (14:14)
[2023-09-09 14:28] LABS: Alanine Aminotransferase 54 U/L (0-41); Albumin Level 5.1 g/dL (3.5-5.2); Alkaline Phosphatase 91 U/L (40-130); Anion Gap 13.6 (5-19); Aspartate Amino Transferase 68 U/L (0-40); Blood Urea Nitrogen 13 mg/dL (6-20); Calcium 10.1 mg/dL (8.5-10.5); Carbon Dioxide 28 mmol/L (22-29); Chloride 100 mmol/L (98-107); Globulin 2.7 g/dL (1.3-4.6); Glomerular Filtration Rate 95.5 mL/min (90-130); Glucose 86 mg/dL (65-115); Lipase 20 U/L (13-60); Osmolality Calculated 285 mOsm/kg (285-295); Potassium 3.6 mmol/L (3.5-5.1); Sodium 138 mmol/L (136-145); Total Protein 7.8 g/dL (6.6-8.7)
== END 2023-09-09 15:22 | disposition home or self-care (01) ==
PROVIDERS: Emergency Provider Nurse Practitioner Family
DX: R19.7 Diarrhea, unspecified (principal); R16.1 Splenomegaly, not elsewhere classified; Z72.0 Tobacco use
CPT/HCPCS: 74177; 80053; 83690; 85025; 99284; J7030; Q9967

== ENCOUNTER 2023-09-10 00:36 | Emergency (ER) | payer MEDICAID, SELFPAY ==
[2023-09-10 00:46] VITALS: BP 118/74; PULSE 80; RESP 16; TEMP 36.6; O2SAT 99
--- NOTE | 2023-09-10 01:01 | ED_ITS ---
HPI - Male Genitourinary General: Chief complaint: Urogenital-Male Stated complaint: anal and intestinal pain Time Seen by Provider: 09/10/23 00:58 History of Present Illness: 38 yo male come in for anal pain. Traci t was seen earlier for similar complaints and full workup. Labs and imaging were normal. Patient is homeless and temperature is below freezing. Review of Systems General: Reports: 10 or more systems reviewed and unremarkable except in HPI and below Const: Denies: fever(s) GI: Reports: rectal pain PFSH ED PFSH: Medical History (Updated 09/10/23 @ 00:59 by FREDY Crisostomo) No significant past medical history Surgical History (Updated 03/25/23 @ 11:05 by Piyush Burgos MD) No significant past surgical history Social History (Updated 03/25/23 @ 11:06 by Piyush Burgos MD) Smoking and tobacco/nicotine status: current every day tobacco/nicotine user Physical Exam Const: COMMON NORMALS: alert HENMT: COMMON NORMALS: normocephalic HEAD & SCALP: normocephalic Neck/C-Spine: COMMON NORMALS: full ROM Resp: COMMON NORMALS: normal respiratory effort Cardio: COMMON NORMALS: regular rate RATE: regular rate Extremity: COMMON NORMALS: full ROM Neuro: SENSORIUM/ORIENTATION: Yes alert Skin: COMMON NORMALS: turgor normal GENERAL SKIN EXAM: turgor normal Course Vital Signs: Vital signs: Vital Signs Temperature 97.9 F 09/10/23 00:46 Pulse Rate 80 09/10/23 00:46 Respiratory Rate 16 09/10/23 00:46 Blood Pressure 118/74 09/10/23 00:46 Pulse Oximetry 99 09/10/23 00:46 Oxygen Delivery Me thod Room Air 09/10/23 00:46 MDM - Male Medical Decision Making Reviewed exam with patient and recommendations of hydrocortisone cream to anus for discomfort and redness. Reassured patient there was no abnormalities on exam, labs, and imaging earlier. Patient should follow-up with primary care for further treatment. No radiology studies performed this visit Discharge Plan Discharge Patient Disposition: Home Clinical Impression: Anal pruritus Condition: Stable Prescriptions: No Action No Known Home Medications Discharge Orders: Discharge ED (Routine); Ordered 09/10/23 Ordered By: Federico Robertson Discharge Diet: Usual diet Discharge Activity: Increase activity as tolerated Patient Instructions: Hemorrhoids (ED) Activity Restrictions/Additional Instructions: Use hydrocortisone cream three times a day to butthole for pain and discomfort. Follow-up with primary care for further treatment. Coding Level of Care Code ED Diagnostic Sales Specialist for Jolene Tony
== END 2023-09-10 01:50 | disposition home or self-care (01) ==
PROVIDERS: Emergency Provider Nurse Practitioner Family
DX: L29.0 Pruritus ani (principal); Z72.0 Tobacco use
CPT/HCPCS: 99283

== ENCOUNTER 2024-05-31 13:11 | Emergency (ER) | payer MEDICAID, SELFPAY ==
[2024-05-31 13:17] VITALS: BP 146/95; PULSE 75; RESP 17; TEMP 37.7; O2SAT 97; BMI 24.2
--- NOTE | 2024-05-31 13:24 | CTR_ITS ---
PROCEDURE INFORMATION: Exam: CT Maxillofacial Without Contrast Exam date and time: 05/31/2024 1:54 PM Age: 38 years old Clinical indication: Mass, lump, or swelling; Mouth; Patient HX: PT reporting left upper and lower dental pain that started a few days ago that has progressed to facial and nasal swelling, PT reports he suspects an abcess. PT reports he is having difficulty eating and swallowing d/t pain, able to handle secretions but difficulty swallowing food. ; Additional info: Dental / facial swelling TECHNIQUE: Imaging protocol: Computed tomography of the face without contrast. Radiation optimization: All CT scans at this facility use at least one of these dose optimization techniques: automated exposure control; mA and/or kV adjustment per patient size (includes targeted exams where dose is matched to clinical indication); or iterative reconstruction. COMPARISON: No relevant prior studies available. RADIATION DOSE METRICS: Total DLP (mGy-cm): 578.08 FINDINGS: Orbital cavities: Orbits are normal. Globes are unremarkable. Paranasal sinuses: Mucosal disease of bilateral maxillary sinuses, left sphenoid sinus and bilateral ethmoid air cells with frothy secretions in the left ethmoid air cells, left sphenoid sinus and left maxillary sinus. Teeth: Periapical lucencies around the left maxillary medial and lateral incisor tooth and left maxillary 1st and 2nd premolar teeth and right maxillary 1st and 2nd molar teeth. Periapical lucencies around bilateral mandibular canine teeth. Bones: No acute fracture. Segmentation anomaly at C3-C4. Soft tissues: Mild left cheek skin thickening and subcutaneous fat stranding. CT/CT facial bones wo con* [id number] IMPRESSION: 1. Acute paranasal sinusitis involving the left paranasal sinuses. 2. Multiple periapical lucency suggestive of fatty root abscesses in the maxilla and mandible. 3. No large soft tissue collections to suggest soft tissue abscesses.
--- NOTE | 2024-05-31 13:26 | W.ED.DENTAL ---
HPI - Dental/Oral General: Chief complaint: Dental/Oral Stated complaint: facial swelling Time Seen by Provider: 05/31/24 13:14 History of Present Illness: 38-year-old male who presents with a 3-day history of progressively worsening swelling and pain of the upper face and upper lip. Patient has severe dental caries and has had no dental attention. He states they have given him ibuprofen with no improvement. He denies difficulty swallowing or difficulty with breathing. He denies difficulty opening and closing his jaw. The pain and swelling is of the upper lip and upper maxillary region. Left side is worse than the right side as well as the central portion. Today he developed swelling of his upper lip. He denies prior medication allergies. Related Data Previous Rx's Medication Instructions Recorded hydrocortisone 1 % topical cream 1 applic [place] BID #28.4 grams 09/10/23 with perineal applicator chlorhexidine gluconate 0.12 % 15 ml buccal BID #473 mL 05/31/24 mouthwash (Peridex) clindamycin HCl 300 mg capsule 300 mg PO Q6H 10 days #40 caps 05/31/24 Allergies Allergy/AdvReac Type Severity Reaction Status Date / Time bee venom protein (honey bee) Allergy ALGY-Anaphy Verified 05/31/24 13:24 laxis poison christian extract Allergy ALGY-Rash Verified 05/31/24 13:24 poison oak extract Allergy ALGY-Rash Verified 05/31/24 13:24 poison sumac extract Allergy ALGY-Rash Verified 05/31/24 13:24 PFSH ED PFSH: Medical History (Updated 05/31/24 @ 14:37 by Bere Sanchez MD) Psychiatric care No significant past medical history Surgical History (Updated 03/25/23 @ 11:05 by Piyush Burgos MD) No significant past surgical history Social History (Updated 03/25/23 @ 11:06 by Piyush Burgos MD) Smoking and tobacco/nicotine status: current every day tobacco/nicotine user Course Vital Signs: Vital signs: Vital Signs Temperature 99.8 F H 05/31/24 13:17 Pulse Rate 91 05/31/24 13:53 Respiratory Rate 17 05/31/24 13:53 Blood Pressure 143/86 05/31/24 13:53 Pulse Oximetry 98 05/31/24 13:53 Oxygen Delivery Me thod Room Air 05/31/24 13:53 MDM - Dental/Oral Medical Decision Making 38-year-old male who [facility] with severe dental decay and associated facial swelling. On examination, the patient does not have any palpable or drainable abscesses. He does have generalized swelling of the entire maxillary region including edema of the upper lip. He has no uvula or tongue swelling. He had an IV placed and has been given IV Benadryl, IV Pepcid and IV Solu-Medrol. There has been no change in the swelling. He was also given Toradol IV for pain as well as IV clindamycin 900 mg. He has had a CT of this maxillofacial bones which shows paranasal sinusitis as well as periapical gingival abscesses but no drainable soft tissue abscess. Will plan for [facility] with clindamycin 300 mg 4 times daily x 10 days. Have also given him Peridex mouthwash to use twice daily. Recommend oral surgery follow-up first available. Return if worsening swelling, persistent fever or difficulty swallowing Differential Diagnosis Likely gingival abscess, dental caries and dental abscess Lab Data Radiology Impressions Face CT 05/31/24 13:24 IMPRESSION: 1. Acute paranasal sinusitis involving the left paranasal sinuses. 2. Multiple periapical lucency suggestive of fatty root abscesses in the maxilla and mandible. 3. No large soft tissue collections to suggest soft tissue abscesses. All radiology interpretation(s) finalized by discharge ED provider radiology interpretation(s): CT imaging of the maxillofacial structures have been obtained. Per radiology, there are multiple periapical root abscesses in the maxilla and mandible but no large soft tissue collections to suggest soft tissue abscesses. Patient also has acute paranasal sinusitis in the left paranasal sinuses Discharge Plan Discharge Patient Disposition: Home Clinical Impression: Dental caries, Gingival abscess, Sinusitis Condition: Stable Prescriptions: New clindamycin HCl 300 mg capsule 300 mg PO Q6H 10 Days Qty: 40 0RF Peridex 0.12 % mouthwash 15 ml buccal BID Qty: 473 0RF Rx Instructions: Rinse mouth twice daily No Action hydrocortisone 1 % cream with perineal applicator 1 applic [place] BID Qty: 28.4 0RF Discharge Orders: Discharge ED (Routine); Ordered 05/31/24 Ordered By: Bere Sanchez Discharge Diet: Advance as tolerated Discharge Activity: Increase activity as tolerated Patient Instructions: Dental Abscess (ED), Opioid Safety, Pain Management, Sinusitis - Acute Activity Restrictions/Additional Instructions: Take the antibiotics 4 times daily. Soft diet. Rinse your mouth twice daily with the chlorhexidine mouthwash. You have multiple small abscesses associated with many of your upper and lower teeth but no large drainable abscess fluid collections. You also have an acute sinus infection. You are being placed on antibiotics to treat this. Return if the swelling worsens. Follow-up first available with a dentist or oral surgeon Coding Level of Care Code ED Hospice Aide for Jolene Tony
[2024-05-31] MEDS: methylPREDNISolone sod succ 125 mg/2 mL INJ IVP (13:46)
[2024-05-31] MEDS: famotidine 20 mg/2 mL INJ 40 MG IVP (13:46)
[2024-05-31] MEDS: ketorolac 30 mg/mL INJ 15 MG IVP (13:46)
[2024-05-31] MEDS: diphenhydrAMINE 50 mg/mL SDV 1mL IVP (13:46)
[2024-05-31] MEDS: clindamycin 900 MG/50 ML PREMIX 100 MG IV (13:47)
[2024-05-31 13:53] VITALS: BP 143/86; PULSE 91; RESP 17; O2SAT 98
[2024-05-31 15:00] VITALS: BP 135/87; PULSE 82; RESP 17; O2SAT 96
== END 2024-05-31 15:18 | disposition home or self-care (01) ==
PROVIDERS: Emergency Provider Emergency Medicine
DX: K02.9 Dental caries, unspecified (principal); K05.20 Aggressive periodontitis, unspecified; J32.9 Chronic sinusitis, unspecified; Z72.0 Tobacco use
CPT/HCPCS: 70486; 96374; 96375; 99285; J1200; J1885; J2919; J3490

== ENCOUNTER 2024-06-15 12:35 | Emergency (ER) | payer MEDICAID, SELFPAY ==
[2024-06-15] VITALS (7 sets, daily range): BP systolic 95–114; BP diastolic 58–77; PULSE 51–73; RESP 18; TEMP 36.7; O2SAT 95–100; BMI 24.7
--- NOTE | 2024-06-15 12:52 | XRR_ITS ---
PROCEDURE INFORMATION: Exam: XR Chest Exam date and time: 06/15/2024 12:56 PM Age: 38 years old Clinical indication: Pain; Chest pressure; Additional info: Chest pain TECHNIQUE: Imaging protocol: Radiologic exam of the chest. Views: 1 view. COMPARISON: CR XR chest 1V [id number] 03/25/2023 11:12 AM FINDINGS: Lungs: Unremarkable. No consolidation. Pleural spaces: Unremarkable. No pleural effusion. No pneumothorax. Heart/Mediastinum: Unremarkable. No cardiomegaly. Bones/joints: Unremarkable. XR/XR chest 1V portable [id number] IMPRESSION: No acute findings.
--- NOTE | 2024-06-15 12:52 | ECG_ITS ---
[facility] Test Date: 2024-06-15 Pat Name: Edgar Martel Department: Room: Gender: Male Writer Editor: : 1985 Requested By: Jayce Murray Order Number: [id number] Mirna MD: Ciro Richter M.D. Measurements Intervals [place] Rate: 53 P: 45 NV: 165 QRS: 51 QRSD: 90 T: 55 QT: 393 QTc: 372 Interpretive Statements SINUS BRADYCARDIA Compared to ECG 03/25/2023 10:28:31 Sinus rhythm no longer present Myocardial infarct finding no longer present Electronically Signed On 06-15-2024 17:43:47 CDT by Ciro Richter M.D. [id number] f
[2024-06-15 13:11] LABS: Basophils # 0.1 10^3/uL (0.0-0.1); Basophils % 1.1 %; Eosinophils # 0.3 10^3/uL (0.0-0.8); Eosinophils % 6.2 %; Hematocrit 43.6 % (37-53); Lymphocytes % 42.7 %; Mean Corpuscular HGB Conc 34.6 g/dL (30-55); Mean Corpuscular Hemoglobin 30.9 pg (27-33); Mean Corpuscular Volume 89.3 fl (82-101); Mean Platelet Volume 8.7 fL (7.4-10.4); Monocytes # 0.4 10^3/uL (0.2-0.9); Monocytes % 7.4 %; Neutrophils % 42.4 %; Nucleated Red Blood Cells % 0 %; Platelet Count 234 10^3/cmm (157-399); Red Blood Count 4.88 10^6/uL (3.85-5.65); Red Cell Distribution Width 12.3 % (12.1-15.1); White Blood Count 4.71 10^3/uL (3.29-11.43)
--- NOTE | 2024-06-15 13:16 | ED_ITS ---
HPI - Chest Pain 2 General: Chief Complaint: Chest Pain Stated Complaint: chest pain Time Seen by Provider: 06/15/24 13:00 History of Present Illness: Presents to the ER from [facility] with complaints of chest pain. He says it feels like a squeezing sensation in the middle of his chest. This started about 30 minutes ago but now has relieved itself. Patient was not doing anything when it started did nothing to make it relieve itself. EMS did give him 3 and 24 mg aspirin on route. Patient does not have a history of cardiac disease. Patient denies shortness of breath diaphoresis nausea vomiting Related Data Previous Rx's Medication Instructions Recorded hydrocortisone 1 % topical cream 1 applic [place] BID #28.4 grams 09/10/23 with perineal applicator chlorhexidine gluconate 0.12 % 15 ml buccal BID #473 mL 05/31/24 mouthwash (Peridex) Allergies Allergy/AdvReac Type Severity Reaction Status Date / Time bee venom protein (honey bee) Allergy ALGY-Anaphy Verified 06/15/24 12:56 laxis poison christian extract Allergy ALGY-Rash Verified 06/15/24 12:56 poison oak extract Allergy ALGY-Rash Verified 06/15/24 12:56 poison sumac extract Allergy ALGY-Rash Verified 06/15/24 12:56 Review of Systems 2 General: Reports: 10 or more systems reviewed and unremarkable except in HPI and below PFSH ED 2 PFSH: Medical History Psychiatric care No significant past medical history Surgical History No significant past surgical history Social History Smoking and tobacco/nicotine status: current every day tobacco/nicotine user Physical Exam 2 Const: COMMON NORMALS: no acute distress, average body habitus, patient oriented x3, no limitations, healthy appearing, alert and well nourished HENMT: COMMON NORMALS: normocephalic, atraumatic, hearing grossly normal bilaterally, external ears normal, Normal external nose present and moist oral mucous membranes HEAD & SCALP: normocephalic and atraumatic NOSE: Normal external nose present EXTERNAL EAR: Yes external ears normal Neck/C-Spine: COMMON NORMALS: full ROM, no lymphadenopathy, supple, no meningeal signs, no JVD and Thyroid normal THYROID: Thyroid normal Chest: COMMONS NORMALS: normal inspection of the chest and normal palpation of entire chest wall Resp: COMMON NORMALS: normal respiratory effort, No retractions, No use of accessory muscles and clear to auscultation bilaterally AUSCULTATION: clear to auscultation bilaterally Cardio: COMMON NORMALS: no JVD, regular rate, regular rhythm, S1 normal heart sound present, S2 normal heart sound present, No gallops present (Cardio), No clicks present (Cardio), No murmurs present (Cardio) and No rub (Cardio) R ATE: regular rate RHYTHM: regular rhythm HEART SOUNDS: S1 normal heart sound present and S2 normal heart sound present GI: COMMON NORMALS: Normal to inspection, nondistended, normoactive bowel sounds present, Soft to palpation, non-tender, No hepatosplenomegaly present and no masses PALPATION: Yes Soft to palpation and Yes No hepatosplenomegaly present Neuro: COMMON NORMALS: patient oriented x3 SENSORIUM/ORIENTATION: Yes alert MENINGEAL SIGNS: Yes no meningeal signs Course 2 Vital Signs: Vital signs: Vital Signs Temperature 98.1 F 06/15/24 12:50 Pulse Rate 65 06/15/24 13:26 Respiratory Rate 18 06/15/24 13:26 Blood Pressure 98/58 06/15/24 13:26 Pulse Oximetry 97 06/15/24 13:26 Oxygen Delivery Me thod Room Air 06/15/24 13:26 MDM - Chest Pain Medical Decision Making Patient presents to the ER with complaints of intermittent episodic chest pain patient was worked up in a standard chest pain fashion with serial EKGs serial enzymes chest x-ray. All of these were essentially benign. Patient be discharged back to nursing home. Differential Diagnosis Unlikely acute massive pulmonary embolism, acute respiratory failure, acute myocardial infarction, cardiac arrest or sudden cardiac Medical Records I reviewed the patient's medical records. Lab Data I reviewed the patient's lab results. 06/15/24 13:03 06/15/24 13:03 Radiology Impressions Chest X-Ray 06/15/24 12:52 IMPRESSION: No acute findings. Laboratory Results WBC 4.71 10^3/uL (3.29-11.43) 06/15/24 13:03 RBC 4.88 10^6/uL (3.85-5.65) 06/15/24 13:03 Hgb 15.10 g/dL (11.27-16.99) 06/15/24 13:03 Hct 43.6 % (37-53) 06/15/24 13:03 MCV 89.3 fl (82-101) 06/15/24 13:03 MCH 30.9 pg (27-33) 06/15/24 13:03 MCHC 34.6 g/dL (30-55) 06/15/24 13:03 RDW 12.3 % (12.1-15.1) 06/15/24 13:03 Plt Count 234 10^3/cmm (157-399) 06/15/24 13:03 MPV 8.7 fL (7.4-10.4) 06/15/24 13:03 Neut % (Auto) 42.4 % 06/15/24 13:03 Lymph % (Auto) 42.7 % 06/15/24 13:03 [place] % (Auto) 7.4 % 06/15/24 13:03 Eos % (Auto) 6.2 % 06/15/24 13:03 Baso % (Auto) 1.1 % 06/15/24 13:03 Neut # (Auto) 2.00 10^3/uL (1.8-7.7) 06/15/24 13:03 Lymph # (Auto) 2.0 10^3/uL (0.8-4.8) 06/15/24 13:03 [place] # (Auto) 0.4 10^3/uL (0.2-0.9) 06/15/24 13:03 Eos # (Auto) 0.3 10^3/uL (0.0-0.8) 06/15/24 13:03 Baso # (Auto) 0.1 10^3/uL (0.0-0.1) 06/15/24 13:03 Nucleated RBC % (auto) 0 % 06/15/24 13:03 Nucleated RBCs # 0.0 /100WBC 06/15/24 13:03 Sodium 142 mmol/L (136-145) 06/15/24 13:03 Potassium 4.2 mmol/L (3.5-5.1) 06/15/24 13:03 Chloride 105 mmol/L (98-107) 06/15/24 13:03 Carbon Dioxide 29 mmol/L (22-29) 06/15/24 13:03 Anion Gap 12.2 (5-19) 06/15/24 13:03 BUN 11 mg/dL (6-20) 06/15/24 13:03 Creatinine 0.8 mg/dL (0.7-1.2) 06/15/24 13:03 GFR Calculation 109.4 mL/min (90-130) 06/15/24 13:03 Glucose 78 mg/dL (65-115) 06/15/24 13:03 Calculated Osmolality 292 mOsm/kg (285-295) 06/15/24 13:03 Calcium 8.9 mg/dL (8.5-10.5) 06/15/24 13:03 Total Bilirubin 0.9 mg/dL (0.15-1.2) 06/15/24 13:03 AST 43 U/L (0-40) H 06/15/24 13:03 ALT 78 U/L (0-41) H 06/15/24 13:03 Alkaline Phosphatase 72 U/L (40-130) 06/15/24 13:03 Troponin T Baseline < 6 ng/L (0-15) 06/15/24 13:03 Troponin T 120 Minute 6.00 ng/L (0-15) 06/15/24 15:13 Delta Troponin T 0.20924 ABS# (0-10) 06/15/24 15:13 Total Protein 6.7 g/dL (6.6-8.7) 06/15/24 13:03 Albumin 4.3 g/dL (3.5-5.2) 06/15/24 13:03 Globulin 2.4 g/dL (1.3-4.6) 06/15/24 13:03 All radiology interpretation(s) finalized by discharge Discharge Plan Discharge Patient Disposition: Home Clinical Impression: Chest pain Qualifiers: Chest pain type: unspecified Qualified Code(s): R07.9 - Chest pain, unspecified Condition: Stable Prescriptions: No Action hydrocortisone 1 % cream with perineal applicator 1 applic [place] BID Qty: 28.4 0RF Peridex 0.12 % mouthwash 15 ml buccal BID Qty: 473 0RF Rx Instructions: Rinse mouth twice daily Discharge Orders: Discharge ED (Routine); Ordered 06/15/24 Ordered By: Jayce Murray Patient Instructions: Chest Pain (ED) Activity Restrictions/Additional Instructions: Your evaluation ER that included physical exam, chest x-ray, lab work, EKG did not show any acute coronary cause of your chest pain. It is felt that your chest pain is noncardiac in nature. Please follow-up with your family doctor for further evaluation and treatment. Coding Level of Care Code ED Jawbone Puller for Jolene Tony
[2024-06-15 13:28] LABS: Alanine Aminotransferase 78 U/L (0-41); Albumin Level 4.3 g/dL (3.5-5.2); Alkaline Phosphatase 72 U/L (40-130); Anion Gap 12.2 (5-19); Aspartate Amino Transferase 43 U/L (0-40); Blood Urea Nitrogen 11 mg/dL (6-20); Calcium 8.9 mg/dL (8.5-10.5); Carbon Dioxide 29 mmol/L (22-29); Chloride 105 mmol/L (98-107); Creatinine Clr Calc Pharmacy 131.6279; Globulin 2.4 g/dL (1.3-4.6); Glomerular Filtration Rate 109.4 mL/min (90-130); Glucose 78 mg/dL (65-115); Osmolality Calculated 292 mOsm/kg (285-295); Potassium 4.2 mmol/L (3.5-5.1); Sodium 142 mmol/L (136-145); Total Bilirubin 0.9 mg/dL (0.15-1.2); Total Protein 6.7 g/dL (6.6-8.7)
[2024-06-15 13:30] LABS: Troponin(5th) Baseline < 6 ng/L (0-15)
--- NOTE | 2024-06-15 14:56 | ECG_ITS ---
[facility] Test Date: 2024-06-15 Pat Name: Edgar Martel Department: Room: Gender: Male Superintendent Communications: : 1985 Requested By: Jayce Murray Order Number: [id number] Mirna MD: Ciro Richter M.D. Measurements Intervals [place] Rate: 54 P: 11 UT: 166 QRS: 18 QRSD: 92 T: 6 QT: 405 QTc: 386 Interpretive Statements SINUS BRADYCARDIA WITH SINUS ARRHYTHMIA Compared to ECG 06/15/2024 12:51:49 No significant changes Electronically Signed On 06-15-2024 17:44:04 CDT by Ciro Richter M.D. [id number]
[2024-06-15 15:35] LABS: Troponin 5 2HR Delta 0.00001 ABS# (0-10)
== END 2024-06-15 16:10 | disposition home or self-care (01) ==
PROVIDERS: Emergency Provider Emergency Medicine
DX: R07.9 Chest pain, unspecified (principal); Z72.0 Tobacco use
CPT/HCPCS: 36415; 71045; 80053; 84484; 85025; 93005; 99285

== ENCOUNTER 2024-08-30 14:37 | Emergency (ER) | payer MEDICAID, SELFPAY ==
--- NOTE | 2024-08-30 14:44 | ECG_ITS ---
[employer] Test Date: 2024-08-30 Pat Name: Edgar Martel Department: Room: Gender: Male Forensic Technician: : 1985 Requested By: Onesimo Corral Order Number: [id number] Mirna MD: Ciro Richter M.D. Measurements Intervals [place] Rate: 52 P: 45 AL: 148 QRS: 44 QRSD: 89 T: 51 QT: 388 QTc: 363 Interpretive Statements SINUS BRADYCARDIA Compared to ECG 06/15/2024 14:56:43 Sinus arrhythmia no longer present Electronically Signed On 08-31-2024 18:51:25 MANAGER SCIENCE by Ciro Richter M.D. [id number] f
[2024-08-30 14:48] VITALS: BMI 26.6
--- NOTE | 2024-08-30 14:49 | XRR_ITS ---
PROCEDURE INFORMATION: Exam: XR Chest Exam date and time: 08/30/2024 3:32 PM Age: 39 years old Clinical indication: Cough and dyspnea; TECHNIQUE: Imaging protocol: Radiologic exam of the chest. Views: 1 view. COMPARISON: CR XR chest 1V portable [id number] 06/15/2024 12:56 PM FINDINGS: Lungs: Unremarkable. No consolidation. Pleural spaces: Unremarkable. No pleural effusion. No pneumothorax. Heart/Mediastinum: Unremarkable. No cardiomegaly. Bones/joints: Unremarkable. XR/XR chest 1V portable [id number] IMPRESSION: No acute findings.
--- NOTE | 2024-08-30 14:54 | ED_ITS ---
HPI - Chest Pain 2 General: Chief Complaint: Chest Pain Stated Complaint: CHEST PAIN Time Seen by Provider: 08/30/24 14:48 History of Present Illness: 39-year-old male presents emergency room with his complaint of chest discomfort he had it while he was at the local intermediate he was not doing anything exertional he cannot really tell me how long it lasted it is resolved now. He has a history of asthma no known history of coronary disease he is not on any medications he is a smoker he is not diabetic and previous cardiac evaluation. Associated symptoms: Deny abdominal pain, dyspnea or fever(s) Related Data Previous Rx's Medication Instructions Recorded hydrocortisone 1 % topical cream 1 applic MT BID #28.4 grams 09/10/23 with perineal applicator chlorhexidine gluconate 0.12 % 15 ml buccal BID #473 mL 05/31/24 mouthwash (Peridex) diclofenac sodium 75 mg 75 mg PO Q12H PRN pain #20 tabs 08/30/24 tablet,delayed release Allergies Allergy/AdvReac Type Severity Reaction Status Date / Time bee venom protein (honey bee) Allergy ALGY-Anaphy Verified 06/15/24 12:56 laxis poison christian extract Allergy ALGY-Rash Verified 06/15/24 12:56 poison oak extract Allergy ALGY-Rash Verified 06/15/24 12:56 poison sumac extract Allergy ALGY-Rash Verified 06/15/24 12:56 Review of Systems 2 Const: Denies: fever(s) or chills Card: Reports: chest pain; Denies: dyspnea on exertion or orthopnea Resp: Denies: dyspnea GI: Denies: abdominal pain : Denies: dysuria, urinary frequency or urinary urgency Musc: Denies: neck pain or back pain Skin/Breast: Denies: rash PFSH ED 2 PFSH: Medical History Psychiatric care No significant past medical history Surgical History No significant past surgical history Social History Smoking and tobacco/nicotine status: current every day tobacco/nicotine user Physical Exam 2 Const: COMMON NORMALS: no acute distress GENERAL APPEARANCE: cooperative and comfortable ORIENTATION/CONSCIOUSNESS: Yes awake, Yes oriented to person, Yes oriented to place and Yes oriented to time HENMT: COMMON NORMALS: normocephalic, atraumatic and hearing grossly normal bilaterally HEAD & SCALP: normocephalic and atraumatic Resp: COMMON NORMALS: normal respiratory effort, No retractions, No use of accessory muscles and clear to auscultation bilaterally AUSCULTATION: clear to auscultation bilaterally Cardio: COMMON NORMALS: regular rate, regular rhythm and No murmurs present (Cardio) RATE: regular rate RHYTHM: regular rhythm GI: COMMON NORMALS: Soft to palpation and No hepatosplenomegaly present A USCULTATION: Yes normoactive bowel sounds PALPATION: Yes Soft to palpation, No Tenderness to palpation present (GI), No Guarding due to palpation present (GI) and Yes No hepatosplenomegaly present Extremity: COMMON NORMALS: normal to inspection, capillary refill normal, no clubbing, cyanosis or edema, no calf tenderness and no pedal edema Neuro: SENSORIUM/ORIENTATION: Yes oriented to person, Yes oriented to place and Yes oriented to time Skin: COMMON NORMALS: no rashes or lesions noted GENERAL SKIN EXAM: no rashes or lesions noted Course 2 Vital Signs: Vital signs: Vital Signs Temperature 97.8 F 08/30/24 14:55 Pulse Rate 59 L 08/30/24 16:05 Respiratory Rate 14 08/30/24 14:55 Blood Pressure 108/62 08/30/24 16:05 Pulse Oximetry 94 08/30/24 16:05 Oxygen Delivery Me thod Room Air 08/30/24 15:51 MDM - Chest Pain Medical Decision Making Patient description of symptoms does not sound like acute coronary syndrome worse with deep breath. She had a abdomen movement chest x-ray negative EKG no acute changes troponin normal discharge patient home with diclofenac to use as needed follow-up with primary care as needed Medical Records I reviewed the patient's medical records. Lab Data I reviewed the patient's lab results. 08/30/24 15:11 08/30/24 15:11 Radiology Impressions Chest X-Ray 08/30/24 14:49 IMPRESSION: No acute findings. Laboratory Results WBC 4.60 10^3/uL (3.29-11.43) 08/30/24 15:11 RBC 4.84 10^6/uL (3.85-5.65) 08/30/24 15:11 Hgb 15.40 g/dL (11.27-16.99) 08/30/24 15:11 Hct 42.9 % (37-53) 08/30/24 15:11 MCV 88.6 fl (82-101) 08/30/24 15:11 MCH 31.8 pg (27-33) 08/30/24 15:11 MCHC 35.9 g/dL (30-55) 08/30/24 15:11 RDW 12.6 % (12.1-15.1) 08/30/24 15:11 Plt Count 183 10^3/cmm (157-399) 08/30/24 15:11 MPV 9.1 fL (7.4-10.4) 08/30/24 15:11 Neut % (Auto) 48.7 % 08/30/24 15:11 Lymph % (Auto) 36.5 % 08/30/24 15:11 [place] % (Auto) 7.6 % 08/30/24 15:11 Eos % (Auto) 6.3 % 08/30/24 15:11 Baso % (Auto) 0.7 % 08/30/24 15:11 Neut # (Auto) 2.24 10^3/uL (1.8-7.7) 08/30/24 15:11 Lymph # (Auto) 1.7 10^3/uL (0.8-4.8) 08/30/24 15:11 [place] # (Auto) 0.4 10^3/uL (0.2-0.9) 08/30/24 15:11 Eos # (Auto) 0.3 10^3/uL (0.0-0.8) 08/30/24 15:11 Baso # (Auto) 0.0 10^3/uL (0.0-0.1) 08/30/24 15:11 Nucleated RBC % (auto) 0 % 08/30/24 15:11 Nucleated RBCs # 0.0 /100WBC 08/30/24 15:11 Sodium 136 mmol/L (136-145) 08/30/24 15:11 Potassium 4.0 mmol/L (3.5-5.1) 08/30/24 15:11 Chloride 101 mmol/L (98-107) 08/30/24 15:11 Carbon Dioxide 25 mmol/L (22-29) 08/30/24 15:11 Anion Gap 14.0 (5-19) 08/30/24 15:11 BUN 11 mg/dL (6-20) 08/30/24 15:11 Creatinine 0.6 mg/dL (0.7-1.2) L 08/30/24 15:11 GFR Calculation 151.6 mL/min (90-130) H 08/30/24 15:11 Glucose 82 mg/dL (65-115) 08/30/24 15:11 Calculated Osmolality 280 mOsm/kg (285-295) L 08/30/24 15:11 Calcium 9.0 mg/dL (8.5-10.5) 08/30/24 15:11 Total Bilirubin 0.9 mg/dL (0.15-1.2) 08/30/24 15:11 AST 32 U/L (0-40) 08/30/24 15:11 ALT 48 U/L (0-41) H 08/30/24 15:11 Alkaline Phosphatase 72 U/L (40-130) 08/30/24 15:11 Troponin T Baseline < 6 ng/L (0-15) 08/30/24 15:11 Total Protein 6.5 g/dL (6.6-8.7) L 08/30/24 15:11 Albumin 4.4 g/dL (3.5-5.2) 08/30/24 15:11 Globulin 2.1 g/dL (1.3-4.6) 08/30/24 15:11 All radiology interpretation(s) finalized by discharge Discharge Plan Discharge Patient Disposition: Home Clinical Impression: Atypical chest pain Condition: Stable Prescriptions: New diclofenac sodium 75 mg tablet,delayed release (DR/EC) 75 mg PO Q12H PRN (Reason: pain) Qty: 20 0RF No Action hydrocortisone 1 % cream with perineal applicator 1 applic [place] BID Qty: 28.4 0RF Peridex 0.12 % mouthwash 15 ml buccal BID Qty: 473 0RF Rx Instructions: Rinse mouth twice daily Discharge Orders: Discharge ED (Routine); Ordered 08/30/24 Ordered By: Onesimo Mullen Discharge Diet: Usual diet Discharge Activity: Increase activity as tolerated Patient Instructions: Opioid Safety, Pain Management Activity Restrictions/Additional Instructions: Thank you for choosing [facility] for your healthcare needs today. It is very important that you follow up as instructed or that you return to the Emergency Department should you have concerns or if your condition changes or worsens in any way. You were seen in the emergency room with complaint of chest pain. Your chest pain is more pleuritic in nature your EKG is normal and cardiac enzyme is negative. Will discharge you home you can use diclofenac as needed for chest discomfort. Coding Level of Care Code ED Paper Sales Manager for Jolene Tony
[2024-08-30 14:55] VITALS: BP 113/77; PULSE 55; RESP 14; TEMP 36.6; O2SAT 97
[2024-08-30 15:23] LABS: Basophils % 0.7 %; Eosinophils # 0.3 10^3/uL (0.0-0.8); Eosinophils % 6.3 %; Hematocrit 42.9 % (37-53); Lymphocytes # 1.7 10^3/uL (0.8-4.8); Lymphocytes % 36.5 %; Mean Corpuscular HGB Conc 35.9 g/dL (30-55); Mean Corpuscular Hemoglobin 31.8 pg (27-33); Mean Corpuscular Volume 88.6 fl (82-101); Mean Platelet Volume 9.1 fL (7.4-10.4); Monocytes # 0.4 10^3/uL (0.2-0.9); Monocytes % 7.6 %; Neutrophils # 2.24 10^3/uL (1.8-7.7); Neutrophils % 48.7 %; Nucleated Red Blood Cells % 0 %; Platelet Count 183 10^3/cmm (157-399); Red Blood Count 4.84 10^6/uL (3.85-5.65); Red Cell Distribution Width 12.6 % (12.1-15.1)
[2024-08-30 15:41] LABS: Alanine Aminotransferase 48 U/L (0-41); Albumin Level 4.4 g/dL (3.5-5.2); Alkaline Phosphatase 72 U/L (40-130); Aspartate Amino Transferase 32 U/L (0-40); Blood Urea Nitrogen 11 mg/dL (6-20); Carbon Dioxide 25 mmol/L (22-29); Chloride 101 mmol/L (98-107); Globulin 2.1 g/dL (1.3-4.6); Glomerular Filtration Rate 151.6 mL/min (90-130); Glucose 82 mg/dL (65-115); Osmolality Calculated 280 mOsm/kg (285-295); Sodium 136 mmol/L (136-145); Total Bilirubin 0.9 mg/dL (0.15-1.2); Total Protein 6.5 g/dL (6.6-8.7)
[2024-08-30 15:42] LABS: Creatinine Clr Calc Pharmacy 179.0073
[2024-08-30 15:46] LABS: Troponin(5th) Baseline < 6 ng/L (0-15)
[2024-08-30 15:51] VITALS: PULSE 51; O2SAT 96
[2024-08-30 16:05] VITALS: BP 108/62; PULSE 59; O2SAT 94
== END 2024-08-30 16:07 | disposition home or self-care (01) ==
PROVIDERS: Emergency Provider Family Medicine
DX: R07.89 Other chest pain (principal); Z72.0 Tobacco use
CPT/HCPCS: 36415; 71045; 80053; 84484; 85025; 93005; 99285

== ENCOUNTER 2024-09-17 01:31 | Emergency (ER) | payer MEDICAID, SELFPAY ==
[2024-09-17 01:33] VITALS: BP 132/73; PULSE 68; RESP 18; TEMP 37.1; O2SAT 99; BMI 23.6
[2024-09-17 01:39] VITALS: BP 132/73; PULSE 68; RESP 18; O2SAT 99
--- NOTE | 2024-09-17 01:58 | W.ED.GIBLEED ---
HPI - GI Bleed General: Chief complaint: GI Bleed Stated complaint: BLOODY STOOL Time Seen by Provider: 09/17/24 01:41 History of Present Illness: 39-year-old man who presents emergency room from long-term. He had some bright red blood in his stool. No abdominal pain. Related Data Previous Rx's Medication Instructions Recorded hydrocortisone 1 % topical cream 1 applic LA BID #28.4 grams 09/10/23 with perineal applicator chlorhexidine gluconate 0.12 % 15 ml buccal BID #473 mL 05/31/24 mouthwash (Peridex) diclofenac sodium 75 mg 75 mg PO Q12H PRN pain #20 tabs 08/30/24 tablet,delayed release Allergies Allergy/AdvReac Type Severity Reaction Status Date / Time bee venom protein (honey bee) Allergy ALGY-Anaphy Verified 09/17/24 01:39 laxis poison christian extract Allergy ALGY-Rash Verified 09/17/24 01:39 poison oak extract Allergy ALGY-Rash Verified 09/17/24 01:39 poison sumac extract Allergy ALGY-Rash Verified 09/17/24 01:39 Review of Systems Narrative: Constitutional symptoms: Negative except as documented in HPI. Skin symptoms: Negative except as documented in HPI. Eye symptoms: Negative except as documented in HPI. ENMT symptoms: Negative except as documented in HPI. Respiratory symptoms: Negative except as documented in HPI. Cardiovascular symptoms: Negative except as documented in HPI. Gastrointestinal symptoms: Negative except as documented in HPI. Genitourinary symptoms: Negative except as documented in HPI. Musculoskeletal symptoms: Negative except as documented in HPI. Neurologic symptoms: Negative except as documented in HPI. Psychiatric symptoms: Negative except as documented in HPI. Endocrine symptoms: Negative except as documented in HPI. PFSH ED PFSH: Medical History (Updated 09/17/24 @ 02:17 by Antonina Lucio MD) No significant past medical history Surgical History No significant past surgical history Social History Smoking and tobacco/nicotine status: current every day tobacco/nicotine user Physical Exam Narrative: EXAM NARRATIVE: General: Alert, no acute distress. Skin: warm and dry Head: Normocephalic Neck: Trachea midline Eye: Extraocular movements are intact. Ears, nose, mouth and throat: Oral mucosa moist Respiratory: Respirations are non-labored Musculoskeletal: Normal ROM Neurological: Alert and oriented, No focal neurological deficit observed. Psychiatric: Cooperative, appropriate mood & affect. Course Vital Signs: Vital signs: Vital Signs Temperature 98.7 F 09/17/24 01:33 Pulse Rate 68 09/17/24 01:39 Respiratory Rate 18 09/17/24 01:39 Blood Pressure 132/73 09/17/24 01:39 Pulse Oximetry 99 09/17/24 01:39 Oxygen Delivery Me thod Room Air 09/17/24 01:33 MDM - GI Bleed Medical Decision Making Lab Review: Laboratory results were reviewed and interpreted by myself the emergency room physician. No evidence of extensive bleeding. No anemia. Also no evidence of upper GI bleeding with a BUN and creatinine that are normal at 18 and 0.7 I reviewed the patient's medical record. Reexamination: Patient remained stable. No increased work of breathing. No altered mental status. No focal motor deficits. Assessment and plan: Rectal bleeding - Discharged home - Discussed plan with patient. Answered any questions. - Evaluation and treatment of this problem were appropriate in the emergency setting. Lab Data 09/17/24 01:40 09/17/24 01:40 Laboratory Results WBC 6.35 10^3/uL (3.29-11.43) 09/17/24 01:40 RBC 4.58 10^6/uL (3.85-5.65) 09/17/24 01:40 Hgb 14.20 g/dL (11.27-16.99) 09/17/24 01:40 Hct 40.5 % (37-53) 09/17/24 01:40 MCV 88.4 fl (82-101) 09/17/24 01:40 MCH 31.0 pg (27-33) 09/17/24 01:40 MCHC 35.1 g/dL (30-55) 09/17/24 01:40 RDW 12.3 % (12.1-15.1) 09/17/24 01:40 Plt Count 222 10^3/cmm (157-399) 09/17/24 01:40 MPV 9.0 fL (7.4-10.4) 09/17/24 01:40 Neut % (Auto) 53.4 % 09/17/24 01:40 Lymph % (Auto) 32.8 % 09/17/24 01:40 [place] % (Auto) 7.6 % 09/17/24 01:40 Eos % (Auto) 5.4 % 09/17/24 01:40 Baso % (Auto) 0.6 % 09/17/24 01:40 Neut # (Auto) 3.40 10^3/uL (1.8-7.7) 09/17/24 01:40 Lymph # (Auto) 2.1 10^3/uL (0.8-4.8) 09/17/24 01:40 [place] # (Auto) 0.5 10^3/uL (0.2-0.9) 09/17/24 01:40 Eos # (Auto) 0.3 10^3/uL (0.0-0.8) 09/17/24 01:40 Baso # (Auto) 0.0 10^3/uL (0.0-0.1) 09/17/24 01:40 Nucleated RBC % (auto) 0 % 09/17/24 01:40 Nucleated RBCs # 0.0 /100WBC 09/17/24 01:40 Sodium 142 mmol/L (136-145) 09/17/24 01:40 Potassium 4.5 mmol/L (3.5-5.1) 09/17/24 01:40 Chloride 104 mmol/L (98-107) 09/17/24 01:40 Carbon Dioxide 30 mmol/L (22-29) H 09/17/24 01:40 Anion Gap 12.5 (5-19) 09/17/24 01:40 BUN 18 mg/dL (6-20) 09/17/24 01:40 Creatinine 0.7 mg/dL (0.7-1.2) 09/17/24 01:40 GFR Calculation 126.9 mL/min (90-130) 09/17/24 01:40 Glucose 72 mg/dL (65-115) 09/17/24 01:40 Calculated Osmolality 294 mOsm/kg (285-295) 09/17/24 01:40 Calcium 9.4 mg/dL (8.5-10.5) 09/17/24 01:40 Total Bilirubin 0.5 mg/dL (0.15-1.2) 09/17/24 01:40 AST 40 U/L (0-40) 09/17/24 01:40 ALT 70 U/L (0-41) H 09/17/24 01:40 Alkaline Phosphatase 84 U/L (40-130) 09/17/24 01:40 Total Protein 7.0 g/dL (6.6-8.7) 09/17/24 01:40 Albumin 4.4 g/dL (3.5-5.2) 09/17/24 01:40 Globulin 2.6 g/dL (1.3-4.6) 09/17/24 01:40 All radiology interpretation(s) finalized by discharge Discharge Plan Discharge Patient Disposition: Home Clinical Impression: Hematochezia Condition: Stable Prescriptions: No Action hydrocortisone 1 % cream with perineal applicator 1 applic LA BID Qty: 28.4 0RF Peridex 0.12 % mouthwash 15 ml buccal BID Qty: 473 0RF Rx Instructions: Rinse mouth twice daily diclofenac sodium 75 mg tablet,delayed release (DR/EC) 75 mg PO Q12H PRN (Reason: pain) Qty: 20 0RF Discharge Orders: Discharge ED (Routine); Ordered 09/17/24 Ordered By: Antonina Lucio Discharge Diet: Usual diet Discharge Activity: Increase activity as tolerated Patient Instructions: Opioid Safety, Pain Management Activity Restrictions/Additional Instructions: Thank you for choosing [facility] for your healthcare needs today. Please realize this is an emergency room and that we are providing you with a medical screening exam and this may not be complete and all inclusive of all the testing and or work up that you may need to determine your ailment or severity of your illness. You have been screened and evaluated and felt safe for discharge. Health conditions do change or evolve sometimes and as such it is important that you follow up with your Primary Doctor to be re checked, 3-5 days is a general good time frame for follow up. You are always welcome to return to the ED for re assessment if your symptoms are worsening or you have new concerns Coding Level of Care Code ED Java Developer Analyst for Jolene Tony
[2024-09-17 02:02] LABS: Basophils % 0.6 %; Eosinophils # 0.3 10^3/uL (0.0-0.8); Eosinophils % 5.4 %; Hematocrit 40.5 % (37-53); Lymphocytes # 2.1 10^3/uL (0.8-4.8); Lymphocytes % 32.8 %; Mean Corpuscular HGB Conc 35.1 g/dL (30-55); Mean Corpuscular Volume 88.4 fl (82-101); Monocytes # 0.5 10^3/uL (0.2-0.9); Monocytes % 7.6 %; Neutrophils % 53.4 %; Nucleated Red Blood Cells % 0 %; Platelet Count 222 10^3/cmm (157-399); Red Blood Count 4.58 10^6/uL (3.85-5.65); Red Cell Distribution Width 12.3 % (12.1-15.1); White Blood Count 6.35 10^3/uL (3.29-11.43)
[2024-09-17 02:09] VITALS: BP 132/73; PULSE 92; O2SAT 99
[2024-09-17 02:13] LABS: Alanine Aminotransferase 70 U/L (0-41); Albumin Level 4.4 g/dL (3.5-5.2); Alkaline Phosphatase 84 U/L (40-130); Anion Gap 12.5 (5-19); Aspartate Amino Transferase 40 U/L (0-40); Blood Urea Nitrogen 18 mg/dL (6-20); Calcium 9.4 mg/dL (8.5-10.5); Carbon Dioxide 30 mmol/L (22-29); Chloride 104 mmol/L (98-107); Creatinine Clr Calc Pharmacy 146.0188; Globulin 2.6 g/dL (1.3-4.6); Glomerular Filtration Rate 126.9 mL/min (90-130); Glucose 72 mg/dL (65-115); Osmolality Calculated 294 mOsm/kg (285-295); Potassium 4.5 mmol/L (3.5-5.1); Sodium 142 mmol/L (136-145); Total Bilirubin 0.5 mg/dL (0.15-1.2)
[2024-09-17 02:20] VITALS: BP 137/86; PULSE 86; O2SAT 100
== END 2024-09-17 02:26 | disposition home or self-care (01) ==
LOC: ER 09-19 06:17
PROVIDERS: Emergency Provider Emergency Medicine
DX: K92.1 Melena (principal); Z72.0 Tobacco use
CPT/HCPCS: 36415; 80053; 85025